=== PATIENT | male | born 1940 | race Two or more races ===

== ENCOUNTER 2018-05-30 11:27 | Outpatient (CLI) | payer OTHER ==
[~2018-05-30 11:27] MED LIST: AMBIEN10 MG PO; CIPRO750 MG PO; Colace 100MG PO; NEURONTIN PO; NEURONTIN800 MG; NORCO 10/325 TA1 TAB PO; PERCOCET 5/3251 TAB PO; PNEU16DI2; SYNTHROID75 MCG PO; ZOCOR80 MG
[2018-06-14] MEDS ORDERED: B COMPLEX1 EACH PO (13:09)
[2018-06-14] MEDS ORDERED: B-12 COMPL1000 MCG/1 IJ (13:10)
== END 2018-05-30 15:42 | disposition home or self-care (01) ==
LOC: RAD 501 11:27
DX: Z01.811 Encounter for preprocedural respiratory examination (principal)

== ENCOUNTER 2018-06-20 05:35 | Day surgery (SDC) | payer OTHER ==
[~2018-06-20 05:35] MED LIST changes: +B COMPLEX1 EACH PO; +B-12 COMPL1000 MCG/1 IJ
== END 2018-06-20 14:40 | disposition home or self-care (01) ==
LOC: CIR.AMB 05:35
DX: C15.4 Malignant neoplasm of middle third of esophagus (principal)
CPT/HCPCS: 36561; C1751

== ENCOUNTER 2018-06-26 15:33 | Inpatient (IN) | payer OTHER ==
[~2018-06-26] VITALS: Ht 165.1 cm; Wt 79.4 kg
[2018-06-28] MEDS ORDERED: CEFADROXIL250 MG/5 M PO (10:01)
== END 2018-06-28 10:57 | disposition home or self-care (01) | DRG 376 ==
LOC: MEDI 15:33
PROVIDERS: ADMIT Internal Medicine
PROC: 0DH63UZ Insertion of Feeding Device into Stomach, Percutaneous Approach (ICD-10-PCS; principal; 2018-06-27)
DX: C15.4 Malignant neoplasm of middle third of esophagus (principal); R13.13 Dysphagia, pharyngeal phase; M51.26 Other intervertebral disc displacement, lumbar region
CPT/HCPCS: 240

== ENCOUNTER 2018-08-10 16:21 | Outpatient (CLI) | payer OTHER ==
[~2018-08-10 16:21] MED LIST changes: +CEFADROXIL250 MG/5 M PO
== END 2018-08-10 16:26 | disposition home or self-care (01) ==
LOC: RAD 501 16:21
DX: J44.1 Chronic obstructive pulmonary disease with (acute) exacerbation (principal)

== ENCOUNTER 2018-08-18 08:54 | Outpatient (CLI) | payer OTHER | END 2018-08-18 13:06 | disposition home or self-care (01) | LOC: LAB 08:54 | DX: C15.4 Malignant neoplasm of middle third of esophagus (principal); D51.3 Other dietary vitamin B12 deficiency anemia; E03.8 Other specified hypothyroidism; M51.06 Intervertebral disc disorders with myelopathy, lumbar region ==

== ENCOUNTER 2018-09-07 09:49 | Emergency (ER) | payer OTHER ==
[~2018-09-07] VITALS: Ht 165.1 cm; Wt 74.8 kg
[2018-09-07] MEDS ORDERED: MEGACE ES625 MG/5 M PO (18:55)
[2018-09-07] MEDS ORDERED: MECLIZINE HCL12.5 MG PO (18:55)
== END 2018-09-07 21:00 | disposition home or self-care (01) ==
LOC: ER 09:49
DX: R42 Dizziness and giddiness (principal); E87.6 Hypokalemia; E86.0 Dehydration; C15.9 Malignant neoplasm of esophagus, unspecified

== ENCOUNTER 2018-09-18 10:20 | Outpatient (CLI) | payer OTHER ==
[~2018-09-18 10:20] MED LIST changes: +MECLIZINE HCL12.5 MG PO; +MEGACE ES625 MG/5 M PO
== END 2018-09-18 12:27 | disposition home or self-care (01) ==
LOC: LAB 10:20
DX: C15.4 Malignant neoplasm of middle third of esophagus (principal); D51.3 Other dietary vitamin B12 deficiency anemia; E03.8 Other specified hypothyroidism; M51.06 Intervertebral disc disorders with myelopathy, lumbar region

== ENCOUNTER 2018-09-20 14:51 | Outpatient (CLI) | payer OTHER | END 2018-09-20 14:58 | disposition home or self-care (01) | LOC: LAB 14:51 | DX: C15.4 Malignant neoplasm of middle third of esophagus (principal); D51.3 Other dietary vitamin B12 deficiency anemia; E03.8 Other specified hypothyroidism; M51.06 Intervertebral disc disorders with myelopathy, lumbar region; D50.8 Other iron deficiency anemias; D51.8 Other vitamin B12 deficiency anemias; I10 Essential (primary) hypertension; R97.0 Elevated carcinoembryonic antigen [CEA] ==

== ENCOUNTER 2018-09-26 11:28 | Emergency (ER) | payer OTHER ==
[~2018-09-26] VITALS: Ht 165.1 cm; Wt 74.8 kg
== END 2018-09-26 17:44 | disposition home or self-care (01) ==
LOC: ER 11:28
DX: I82.492 Acute embolism and thrombosis of other specified deep vein of left lower extremity (principal); I87.2 Venous insufficiency (chronic) (peripheral)

== ENCOUNTER 2018-10-31 10:39 | Emergency (ER) | payer OTHER ==
[~2018-10-31] VITALS: Ht 165.1 cm; Wt 74.8 kg
[2018-10-31] MEDS ORDERED: NEURONTIN300 MG PO (11:12)
== END 2018-10-31 13:40 | disposition home or self-care (01) ==
LOC: ER 10:39
DX: R05 Cough (principal); C15.8 Malignant neoplasm of overlapping sites of esophagus; Z92.21 Personal history of antineoplastic chemotherapy

== ENCOUNTER 2018-11-02 09:02 | Outpatient (CLI) | payer OTHER ==
[~2018-11-02 09:02] MED LIST changes: +NEURONTIN300 MG PO
== END 2018-11-02 12:02 | disposition home or self-care (01) ==
LOC: LAB 09:02
DX: D50.8 Other iron deficiency anemias (principal); D51.8 Other vitamin B12 deficiency anemias

== ENCOUNTER 2018-11-02 13:33 | Outpatient (CLI) | payer OTHER | END 2018-11-02 13:38 | disposition home or self-care (01) | LOC: RAD 501 13:33 | DX: C15.4 Malignant neoplasm of middle third of esophagus (principal) ==

== ENCOUNTER 2018-11-29 09:17 | Outpatient (CLI) | payer OTHER | END 2018-11-29 09:29 | disposition home or self-care (01) | LOC: TOM 09:17 | DX: K22.8 Other specified diseases of esophagus (principal) | CPT/HCPCS: 71260; Q9965 ==

== ENCOUNTER → 2018-12-04 10:03 | Outpatient (CLI) | payer OTHER | END | disposition home or self-care (01) | LOC: LAB 10:03 | DX: E03.8 Other specified hypothyroidism (principal); C15.4 Malignant neoplasm of middle third of esophagus; D51.3 Other dietary vitamin B12 deficiency anemia; M51.06 Intervertebral disc disorders with myelopathy, lumbar region; R97.0 Elevated carcinoembryonic antigen [CEA]; D50.8 Other iron deficiency anemias; I10 Essential (primary) hypertension ==

== ENCOUNTER 2018-12-11 09:33 | Outpatient (CLI) | payer OTHER | END 2018-12-11 09:38 | disposition home or self-care (01) | LOC: LAB 09:33 | DX: C15.4 Malignant neoplasm of middle third of esophagus (principal) ==

== ENCOUNTER 2018-12-25 12:12 | Emergency (ER) | payer OTHER ==
[~2018-12-25] VITALS: Ht 165.1 cm; Wt 73.9 kg
== END 2018-12-25 18:57 | disposition home or self-care (01) ==
LOC: ER 12:12
DX: R10.31 Right lower quadrant pain (principal)

== ENCOUNTER 2019-01-05 10:30 | Emergency (ER) | payer OTHER ==
[~2019-01-05] VITALS: Ht 152.4 cm; Wt 68.0 kg
== END 2019-01-05 16:34 | disposition home or self-care (01) ==
LOC: ER 10:30
DX: L27.1 Localized skin eruption due to drugs and medicaments taken internally (principal); R05 Cough; T50.8X5A Adverse effect of diagnostic agents, initial encounter; Y92.89 Other specified places as the place of occurrence of the external cause

== ENCOUNTER 2019-01-22 09:06 | Outpatient (CLI) | payer OTHER | END 2019-01-22 09:11 | disposition home or self-care (01) | LOC: LAB 09:06 | DX: E03.8 Other specified hypothyroidism (principal); C15.4 Malignant neoplasm of middle third of esophagus; D51.3 Other dietary vitamin B12 deficiency anemia; M51.06 Intervertebral disc disorders with myelopathy, lumbar region; D50.8 Other iron deficiency anemias; D51.8 Other vitamin B12 deficiency anemias; I10 Essential (primary) hypertension; R97.0 Elevated carcinoembryonic antigen [CEA] ==

== ENCOUNTER 2019-02-17 09:06 | Inpatient (IN) | payer OTHER ==
[~2019-02-17] VITALS: Ht 165.1 cm; Wt 74.8 kg
== END 2019-02-28 14:24 | disposition expired | DRG 177 ==
LOC: ER 09:06 → SEC-K 13:07 → MEDJ 13:07
PROVIDERS: ADMIT Internal Medicine
PROC: 8E0ZXY6 Isolation (ICD-10-PCS; principal; 2019-02-17)
PROC: 4A033R1 Measurement of Arterial Saturation, Peripheral, Percutaneous Approach (ICD-10-PCS; 2019-02-17)
PROC: 3E0F7GC Introduction of Other Therapeutic Substance into Respiratory Tract, Via Natural or Artificial Opening (ICD-10-PCS; 2019-02-17)
PROC: B246ZZZ Ultrasonography of Right and Left Heart (ICD-10-PCS; 2019-02-17)
PROC: B32TYZZ Computerized Tomography (CT Scan) of Left Pulmonary Artery using Other Contrast (ICD-10-PCS; 2019-02-17)
PROC: B32SYZZ Computerized Tomography (CT Scan) of Right Pulmonary Artery using Other Contrast (ICD-10-PCS; 2019-02-17)
PROC: BB24ZZZ Computerized Tomography (CT Scan) of Bilateral Lungs (ICD-10-PCS; 2019-02-17)
PROC: B54DZZZ Ultrasonography of Bilateral Lower Extremity Veins (ICD-10-PCS; 2019-02-20)
DX: J15.211 Pneumonia due to Methicillin susceptible Staphylococcus aureus (principal); I26.99 Other pulmonary embolism without acute cor pulmonale; C15.8 Malignant neoplasm of overlapping sites of esophagus; J45.901 Unspecified asthma with (acute) exacerbation; R04.2 Hemoptysis; J70.0 Acute pulmonary manifestations due to radiation; R13.19 Other dysphagia; E87.6 Hypokalemia; I87.2 Venous insufficiency (chronic) (peripheral); E09.8 Drug or chemical induced diabetes mellitus with unspecified complications; T38.0X5A Adverse effect of glucocorticoids and synthetic analogues, initial encounter; E03.8 Other specified hypothyroidism; J09.X2 Influenza due to identified novel influenza A virus with other respiratory manifestations; J69.0 Pneumonitis due to inhalation of food and vomit; I46.9 Cardiac arrest, cause unspecified; R09.02 Hypoxemia